=== PATIENT | female | born 1945 | race Caucasian/White ===

== ENCOUNTER → 2020-12-15 | Outpatient (CLI) | payer MEDICARE, OTHER ==
[~2020-12-15] MED LIST: ELIQUIS2.5 MG PO; NORCO 5-325 TA1 EACH PO; NORVASC 5 MG TAB5 MG PO; OMEPRAZOLE10 MG PO; ZOFRAN 8 MG TAB8 MG PO
== END ==
LOC: HEART 5 14:47
DX: J45.40 Moderate persistent asthma, uncomplicated (principal); R06.02 Shortness of breath; R05 Cough; R94.2 Abnormal results of pulmonary function studies; F17.210 Nicotine dependence, cigarettes, uncomplicated
CPT/HCPCS: 94060; 94729; 95012